=== PATIENT | female | born 1995 | race Caucasian/White ===

== ENCOUNTER 2016-10-16 19:35 | Emergency (ER) | payer OTHER ==
[~2016-10-16] VITALS: Ht 152.4 cm; Wt 69.4 kg
[~2016-10-16 19:35] MED LIST: ACETAMINOPHEN-1 EAC3 PO; CYTOTEC200 MC1 VAG; FLEXERIL10 MG PO; IBU600 MG PO; MINASTRIN 24 FE1 KIT PO; PERCOCET 325 MG1 TA2 PO; PRILOSEC OTC20 MG PO; PRILOSEC40 MG PO; REGLAN10 MG PO; TRAMADOL50 MG PO; ZOFRAN ODT4 M1 SL; ZOFRAN ODT4 MG PO; ZOFRAN ODT4 MG SL
--- NOTE | 2016-10-16 20:45 | ED DYSPNEA/ASTHMA COMPLAINT ---
History of Present Illness General Chief Complaint: Dyspnea (COPD, CHF, Other) Stated Complaint: TROUBLE BREATHING 34 WEEKS PREG Source: patient Exam Limitations: no limitations Vital Signs & Intake/Output Vital Signs & Intake/Output Vital Signs Date Time Temp Pulse Resp B/P Pulse O2 O2 Flow FiO2 Ox Delivery Rate 10/16 2221 98.7 80 18 110/64 99 10/163 100 Room Air 10/16 2018 97.8 102 16 127/82 100 Room Air Allergies Coded Allergies: gluten (ABD CRAMPS BUT STILL EATS BREAD 01/15/16) Uncoded Allergies: CATS AND DOGS (NASAL CONGESTION, ITCHY WATERY EYES 01/15/16) SEASONAL (ITCHY WATERY EYES, NASAL CONGESTION 01/15/16) Reconcile Medications Vit No.130/Iron/FA ( Tablet) 27 MG IRON-800 MCG TABLET 1 TAB PO DAILY SUPPLEMENT (Reported) Triage Note: PT TO ED C/O ONE EPISODE OF SOB THAT BEGAN WHILE SHE WAS WATCHING TV, BREATHING HAS SINCE IMPROVED. DENIES FEVER, DIZZINESS, N/V. STATING "I FEEL LIKE THE BABY IS PUSHING UP MY DIAPHGRAM" Triage Nurses Notes Reviewed? yes Onset: Gradual Duration: minute(s): (20) Timing: no prior history Severity: moderate Activities at Onset: none Prior Episodes/Possible Cause: no prior episodes Modifying Factors: Improves With: immobilization. : Yes Patient currently breastfeeds: No HPI: Patient is a 20-year-old female who is currently 34 weeks presenting to the emergency department with chief complaint of shortness of breath and trouble getting a deep breath then and palpitations that started gradually approximately one hour prior to arrival. She reports symptoms lasted approximately 20 minutes and have subsided since then. Denies abdominal pain. Denies any urinary frequency urgency or dysuria. No hemoptysis. Denies any leg swelling. No history of blood clots. Her RESOLUTION SPECIALIST is Dr. Basurto. She reports that she's been eating and drinking without difficulties. No vaginal bleeding or discharge. (LANE BRIGGS) Past History Travel History Traveled to [place] past 21 day No Medical History Any Pertinent Medical History? see below for history Neurological: NONE EENT: allergies Cardiovascular: NONE Respiratory: NONE Gastrointestinal: NONE Hepatic: NONE Renal: "GALLBLADDER ISSUES" Musculoskeletal: NONE Psychiatric: depression, insomnia Endocrine: NONE Blood Disorders: NONE Cancer(s): NONE PLASTIC FABRICATOR/Reproductive: NONE Surgical History Surgical History: TONSILS WISDOM TEETH Psychosocial History What is your primary language Malaysian Tobacco Use: Never used ETOH Use: denies use Illicit Drug Use: denies illicit drug use Family History Family History, If Any: Relation not specified for: FH: gallbladder disease Hx Contributory? No (LANE BRIGGS) Review of Systems Review of Systems Constitutional: Reports: no symptoms. Comments Review of systems: See HPI, All other systems negative. Constitutional, no chills fever or weight loss HEENT: No visual changes no sore throat no congestion Cardiovascular: No chest pain ,palpitation , orthopnea or ankle swelling Skin, no jaundice no rashes Respiratory: No cough sputum or hemoptysis GI: No nausea no vomiting : No dysuria No hematuria Muscle skeletal: no back pain, no neck pain, Neurologic: No numbness no confusion no polk Psych: No stress anxiety or depression,. Heme/endocrine: No bruising no bleeding no polyuria or polydipsia Immunology: No splenectomy or history of AIDS (LANE BRIGGS) Physical Exam Physical Exam General Appearance: well developed/nourished, no apparent distress, alert, awake , comfortable Respiratory: normal breath sounds, chest non-tender, no respiratory distress Comments: Well-developed well-nourished person in no acute distress HEENT: Normal EENT exam, extraocular motion intact, no nystagmus. Pupils equally round and reactive to light and accommodation. Nose is atraumatic. External auditory canal and Tympanic membranes clear. Pharynx normal. No swelling or edema. Neck: Supple, no lymphadenopathy, normal range of motion without pain or tenderness Back: Nontender, no CVA tenderness. Full range of motion Cardiovascular: Regular rate and rhythms no murmurs rubs or gallops, normal JVP Respiratory: Chest nontender. No respiratory distress.breath sounds clear to auscultation bilaterally Abdomen: Soft, abdomen, nontender, no appreciable organomegaly. Normal bowel sounds. No ascites Extremity: No edema, no calf tenderness to palpation, normal and equal pulses. Neuro: Alert oriented x3 Skin: No appreciable rash on exposed skin, skin is warm and dry. Psych: Mood and affect is normal, memory and judgment is normal. Core Measures ACS in differential dx? No Severe Sepsis Present: No Septic Shock Present: No (LANE BRIGGS) Progress Differential Diagnosis: pulmonary embolus, asthma exacerbation, anxiety, dehydration, electrolyte abnormality Plan of Care: Orders Procedure Date/time Status D-DIMER 10/16 2134 Complete EKG 10/16 2040 Active URINALYSIS 10/16 2039 Complete PROTHROMBIN TIME 10/16 2039 Complete HUMAN BETA HCG TITRE 10/16 2039 Complete COMPREHENSIVE METABOLIC PANEL 10/16 2039 Complete CBC WITHOUT DIFFERENTIAL 10/16 2039 Complete Current Medications Sig/Tia Start time Last Medication Dose Stop Time Status Admin Albuterol Sulfate 3 ML ONCE ONE 10/16 2229 CAN (Proventil) 10/16 2230 Laboratory Tests 10/16/162139: Urine Color YEL, Urine Clarity CLEAR, Urine pH 7.0, Ur Specific [place] 1.020, Urine Protein TRACE H, Urine Ketones TRACE H, Urine Nitrite NEG, Urine Bilirubin NEG, Urine Urobilinogen 0.2, Ur Leukocyte Esterase NEG, Ur Microscopic SEDIMENT EXAMINED, Urine RBC RARE, Urine WBC RARE, Ur Epithelial Cells MANY H, Urine Mucus FEW, Urine Hemoglobin NEG, Urine Glucose NEG 10/16/162134: Anion Gap 7, Estimated GFR > 60, BUN/Creatinine Ratio 16.0, Glucose 80, Calcium 8.3 L, Total Bilirubin 0.3, AST 17, ALT 19, Alkaline Phosphatase 112, Total Protein 6.5, Albumin 3.3 L, Globulin 3.2, Albumin/Globulin Ratio 1.0 L, Beta HCG, Quant 8388.7, PT 10.4, INR 0.99, D-Dimer 246 H, CBC w Diff NO MAN DIFF REQ , RBC 3.98 L, MCV 93.0, MCH 31.5 H, RDW 12.7, MPV 8.5, Gran % 71.9, Lymphocytes % 16.4 L, Monocytes % 9.9 H, Eosinophils % 1.2, Basophils % 0.6, Absolute Granulocytes 8.7 H, Absolute Lymphocytes 2.0, Absolute Monocytes 1.2 H, Absolute Eosinophils 0.1, Absolute Basophils 0.1, PUBS MCHC 33.9 10/16/162044: D-Dimer Cancelled Initial ED EKG: sinus tachycardia at 170 bpm Prior EKG: unchanged Comments: 10/16/2016 10:32:47 PM on arrival patient noted distress, oxygen saturation within normal range, patient is slightly tachycardic. She is . No unilateral leg swelling. Cannot exclude pulmonary embolus, d-dimer ordered. Patient receiving IV fluids. 10/16/2016 10:33:08 PM patient not tachypneic or tachycardic at this time, Poles is currently 83 bpm on the monitor. Normal sinus rhythm. D-dimer is 246, negative according to cut off of 304 patients were greater than 28 weeks . Childbirth center coming over to check tones and the patient will be discharged home with albuterol inhaler. She'll follow up with RESOLUTION SPECIALIST. Discussed with Dr. Boateng and he agrees with plan. tones are in the 140s. (LANE BRIGGS) Departure Departure Time of Disposition: 2232 Disposition: HOME OR SELF CARE Condition: Stable Clinical Impression Primary Impression: Dyspnea Qualifiers: Dyspnea type: unspecified Qualified Code: R06.00 - Dyspnea, unspecified Secondary Impressions: Palpitation Referrals: PATIENT HAS NO PRIMARY CARE DR (PCP/Family) Additional Instructions: Follow-up with your RESOLUTION SPECIALIST call to make an appointment. Increase fluids. Use albuterol inhaler as directed for shortness of breath. Return for worsening symptoms or concerns. Departure Forms: Customer Survey General Discharge Information (LANE BRIGGS) PA/CLINICAL DATA MANAGER Co-Sign Statement Statement: ED Attending supervision documentation- [] I saw and evaluated the patient. I have also reviewed all the pertinent lab results and diagnostic results. I agree with the findings and the plan of care as documented in the PA's/CLINICAL DATA MANAGER's documentation. [x] I have reviewed the ED Record and agree with the PA's/CLINICAL DATA MANAGER's documentation. [] Additions or exceptions (if any) to the PAs/CLINICAL DATA MANAGER's note and plan are summarized below: [] (PAT GREEN,SHY Quezada) Critical Care Note Critical Care Note Critical Care Time: non-applicable (LANE BRIGGS)
[2016-10-16] MEDS ORDERED: PRENATAL TABLE1 EAC2 PO (20:48)
[2016-10-16 21:55] LABS: ABSOLUTE BASOPHIL COUNT 0.1 /CUMM (0.0-0.2); ABSOLUTE EOSINOPHIL COUNT 0.1 /CUMM (0.0-0.7); ABSOLUTE GRANULOCYTE CT 8.7 /CUMM (1.4-6.5); ABSOLUTE MONOCYTE COUNT 1.2 /CUMM (0.10-0.60); BASOPHIL % 0.6 % (0.0-2.0); EOSINOPHIL % 1.2 % (0-5); GRANULOCYTE % 71.9 % (42.2-75.2); MEAN CORPUSCULAR HGB 31.5 PG (27.0-31.0); MEAN CORPUSCULAR HGB CONC 33.9 G/DL (33.0-37.0); MEAN PLATELET VOLUME 8.5 FL (7.4-10.4); PLATELET COUNT 247 /CUMM (130-400); RBC DISTRIBUTION WIDTH 12.7 % (11.5-14.5); RED BLOOD CELL CT 3.98 /CUMM (4.20-5.40); WHITE BLOOD CELL COUNT 12.1 /CUMM (4.8-10.8)
[2016-10-16 22:05] LABS: PT 10.4 SEC (9.4-12.5)
[2016-10-16 22:22] VITALS: BP 110/64
== END 2016-10-16 22:55 ==
LOC: ERH 19:35
PROVIDERS: Physician Assistant
DX: O26.93 Pregnancy related conditions, unspecified, third trimester (principal); R00.2 Palpitations; R06.00 Dyspnea, unspecified; Z3A.36 36 weeks gestation of pregnancy
CPT/HCPCS: 81001; 93005; 93010; 96360; 96361

== ENCOUNTER 2016-11-21 22:32 | Inpatient (IN) | payer OTHER ==
[~2016-11-21] VITALS: Ht 152.4 cm; Wt 77.1 kg
[~2016-11-21 22:32] MED LIST changes: +PRENATAL TABLE1 EAC2 PO
[2016-11-21 23:31] VITALS: BP 129/87
[2016-11-22 00:22] LABS: ABSOLUTE BASOPHIL COUNT 0 /CUMM (0.0-0.2); ABSOLUTE EOSINOPHIL COUNT 0.3 /CUMM (0.0-0.7); ABSOLUTE GRANULOCYTE CT 7.5 /CUMM (1.4-6.5); ABSOLUTE LYMPH COUNT 1.8 /CUMM (1.2-3.4); ABSOLUTE MONOCYTE COUNT 1.4 /CUMM (0.10-0.60); BASOPHIL % 0.4 % (0.0-2.0); EOSINOPHIL % 2.3 % (0-5); GRANULOCYTE % 67.8 % (42.2-75.2); HEMATOCRIT 36.8 % (37-47); MEAN CORPUSCULAR HGB 31.6 PG (27.0-31.0); MEAN CORPUSCULAR HGB CONC 34.3 G/DL (33.0-37.0); MEAN CORPUSCULAR VOLUME 92.1 FL (81.0-99.0); PLATELET COUNT 220 /CUMM (130-400)
--- NOTE | 2016-11-22 12:59 | History & Physical ---
General Information and HPI MD Statement: I have seen and personally examined CHESTER HESTER and documented this H&P. The patient is a 21 year old female at [39] weeks and [3] days gestation who presented with a chief complaint of [PROM]. Source of Information: police History of Present Illness: [id number] WITH PROM AND NOW ACTIVE LABOR. ROUTINE CARE WITH DR FIERRO. EXPECTANT MANAGEMENT. Allergies/Medications Allergies: Coded Allergies: No Known Drug Allergies (11/21/16) Uncoded Allergies: CATS AND DOGS (Mild, NASAL CONGESTION, ITCHY WATERY EYES 11/21/16) SEASONAL (Mild, ITCHY WATERY EYES, NASAL CONGESTION 11/21/16) Home Med list Vit No.130/Iron/FA ( Tablet) 27 MG IRON-800 MCG TABLET 1 TAB PO DAILY SUPPLEMENT (Reported) Past History special crimes investigator History : 2 Para: 0 Last Menstrual Period: NA Estimated Delivery Date: 11/26/16 Past special crimes investigator History: none Medical History Neurological: NONE EENT: allergies Cardiovascular: NONE Respiratory: NONE Gastrointestinal: NONE Hepatic: NONE Renal: "GALLBLADDER ISSUES" Musculoskeletal: NONE Psychiatric: depression, insomnia Endocrine: NONE Blood Disorders: NONE Cancer(s): NONE 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 EENTM: Reports: no symptoms. Cardiovascular: Reports: no symptoms. Respiratory: Reports: no symptoms. GI: Reports: no symptoms. Genitourinary: Reports: no symptoms. Musculoskeletal: Reports: no symptoms. Skin: Reports: no symptoms. Neurological/Psychological: Reports: no symptoms. Hematologic/Endocrine: Reports: no symptoms. Immunologic/Allergic: Reports: no symptoms. All Other Systems: Reviewed and Negative Exam & Diagnostic Data Last 24 Hrs of Vital Signs/I&O Vital Signs Date Time Temp Pulse Resp B/P Pulse O2 O2 Flow FiO2 Ox Delivery Rate 11/21 2331 129/87 Intake & Output 11/22 1600 11/22 0800 11/22 0000 Intake Total Output Total Balance Patient 170 lb Weight Obstetric Exam Wgt Gained During : 35 Pelvimetry: GYNECOID Dilation (cm): 6 Effacement (%): 100 Station: 0 Membranes: SROM Fluid: clear Fundal Height (cm): 40 Multiple Gestation? No Contractions: Q3 #1 - FHR Baseline: 140 Category: 1 Estimated Weight: 7.5 Presentation: CEPHALIC Patient for Induction? No Labs Blood Type & Rh: B POS Antibody Screen: NEG Hct/Hgb & Platelets #1: 36 Hct/Hgb & Platelets #2: Rubella: IMM VDRL #1: NR VDRL #2: NR HbsAg: NEG HIV #1: NEG HIV #2 NEG 1 Hr P Group B Strep: NEG Initial Ultrasound: WNL Anatomy Ultrasound: WNNN Ultrasound for EFW: 6.5 Genetic Testing: NEG Last 24 Hrs of Labs/Jimi: Laboratory Tests 11/21/16 2353: CBC w Diff NO MAN DIFF REQ, RBC 4.00 L, MCV 92.1, MCH 31.6 H, RDW 13.0, MPV 10.0, Gran % 67.8, Lymphocytes % 16.6 L, Monocytes % 12.9 H, Eosinophils % 2.3 , Basophils % 0.4, Absolute Granulocytes 7.5 H, Absolute Lymphocytes 1.8, Absolute Monocytes 1.4 H, Absolute Eosinophils 0.3, Absolute Basophils 0, PUBS MCHC 34.3 11/21/16 2345: Urinalysis MOD H, Urine Color YEL, Urine Clarity CLDY H, Urine pH 7.0, Ur Specific [place] 1.020, Urine Protein 100 H, Urine Ketones NEG, Urine Nitrite NEG, Urine Bilirubin NEG, Urine Urobilinogen 0.2, Ur Leukocyte Esterase NEG, Ur Microscopic SEDIMENT EXAMINED, Urine RBC 1-3, Urine WBC 1-3 H, Ur Epithelial Cells PACKD H, Urine Hemoglobin TRACE-INTACT, Urine Glucose NEG Microbiology 11/22 0915 URINE ROUT: Urine Culture - RECD ITS Data ITS Data Unobtainable at this time Assessment/Plan Assessment/Plan: PROM 39W EXPECTANT MGMT As Ranked By This Provider Problem List: 1. Core Measures/Miscellaneous Bonilla Catheter Still Needed? No Venous Thromboembolism VTE Risk Factors: / VTE Contraindications: No Contraindications VTE Prophylaxis Ordered Inpt: Early Ambulation VTE Diagnosis: No VTE Type: NONE Beta Kat Is Beta Kat a Home Med? No Antibiotics Is Patient on Antibiotics? No
--- NOTE | 2016-11-22 13:24 | Labor & Delivery Summary ---
Delivery Summary Vaginal Delivery: Vaginal: vertex Episiotomy/Lacerations: Episiotomy/Lacerations: none Placenta: Placenta: spontanteous, normal, 3 vessel Anesthesia: EPIDURAL Baby's Weight: P STS Apgars - 1 Min: 9 Apgars - 5 Min: 9
--- NOTE | 2016-11-23 08:44 | PN- Post Delivery/GYN ---
Subjective Subjective: DOING WELL; BREAST FEEDING Review of Systems: NEG Objective Last 24 Hrs of Vital Signs/I&O VSS Physical Exam: FF EXT NT Assessment/Plan Assessment/Plan S/P PPD1 STABLE CBC P ROUTINE PPC Problem List: 1.
[2016-11-23 09:12] LABS: ABSOLUTE BASOPHIL COUNT 0 /CUMM (0.0-0.2); ABSOLUTE EOSINOPHIL COUNT 0.2 /CUMM (0.0-0.7); ABSOLUTE GRANULOCYTE CT 10.1 /CUMM (1.4-6.5); ABSOLUTE LYMPH COUNT 2.1 /CUMM (1.2-3.4); ABSOLUTE MONOCYTE COUNT 1.1 /CUMM (0.10-0.60); BASOPHIL % 0.3 % (0.0-2.0); EOSINOPHIL % 1.4 % (0-5); GRANULOCYTE % 75.1 % (42.2-75.2); MEAN CORPUSCULAR HGB 31.5 PG (27.0-31.0); MEAN CORPUSCULAR HGB CONC 33.6 G/DL (33.0-37.0); MEAN CORPUSCULAR VOLUME 93.8 FL (81.0-99.0); MEAN PLATELET VOLUME 9.6 FL (7.4-10.4); PLATELET COUNT 184 /CUMM (130-400); RBC DISTRIBUTION WIDTH 13.5 % (11.5-14.5); RED BLOOD CELL CT 3.84 /CUMM (4.20-5.40); WHITE BLOOD CELL COUNT 13.4 /CUMM (4.8-10.8)
[2016-11-23] MEDS ORDERED: IBUPROFEN800 M1 PO (15:21)
== END 2016-11-24 09:23 | DRG 560 ==
LOC: CBCO 22:32 → GNO 23:09
PROVIDERS: Obstetrics & Gynecology; ADMIT Specialist
PROC: 10E0XZZ Delivery of Products of Conception, External Approach (ICD-10-PCS; principal; 2016-11-22)
DX: O42.02 Full-term premature rupture of membranes, onset of labor within 24 hours of rupture (principal); Z3A.39 39 weeks gestation of pregnancy; Z37.0 Single live birth
CPT/HCPCS: GNOP; GNOS; 36415; 59025; 81001; 81003; 82570; 84112; 87086; G0463; J7120

== ENCOUNTER 2017-03-24 12:01 | Emergency (ER) | payer OTHER ==
[~2017-03-24] VITALS: Ht 154.9 cm; Wt 68.5 kg
[~2017-03-24 12:01] MED LIST changes: +IBUPROFEN800 M1 PO
--- NOTE | 2017-03-24 12:19 | ED NEURO DEFICIT/STROKE ---
History of Present Illness General Chief Complaint: General Adult Stated Complaint: LEG AND ARM HEAVINESS, X 8 HRS Source: patient, old records Exam Limitations: no limitations Vital Signs & Intake/Output Vital Signs & Intake/Output Vital Signs Date Time Temp Pulse Resp B/P B/P Pulse O2 O2 Flow FiO2 Mean Ox Delivery Rate 03/24 1444 98.5 100 20 120/80 99 Room Air 03/24 1244 Room Air 03/24 1205 98.3 105 20 124/87 99 Room Air Allergies Coded Allergies: No Known Drug Allergies (11/21/16) Uncoded Allergies: CATS AND DOGS (Mild, NASAL CONGESTION, ITCHY WATERY EYES 11/21/16) SEASONAL (Mild, ITCHY WATERY EYES, NASAL CONGESTION 11/21/16) Reconcile Medications Ethinyl Estradiol/Drospirenone (Teri 28 Tablet) 0.03 MG-3 MG TABLET 1 TAB PO DAILY BC (Reported) Methylprednisolone. (Medrol) 4 MG TAB.DS.PK 1 DP PO AD LUMBAR RADICULOPATHY 6 on day 1 then reduce by one tablet daily until gone Triage Note: PT TO ED C/O LOWER BACK PAIN AND "LEGS FEELING HEAVY". STARTED AT 0400 THIS AM. STATES SHE IS ALSO UNABLE TO LIFT HER ARMS OVER HER HEAD. DENIES ANY INJURY. STATES SHE IS HAVING A HARD TIME HOLDING THINGS, LIKE HER CELL PHONE, WHEN TEXTING. ALSO STATES AT TIMES SHE IS HAVING A HARD TIME FINDING WORDS. Triage Nurses Notes Reviewed? yes Onset: Gradual Duration: hour(s): (8), constant Timing: recent history Severity: mild, moderate Altered Sensations: RLE, LLE Vision Problem? No Associated Symptoms: DENIES : No Patient currently breastfeeds: No HPI: 21-year-old female presents to ER for evaluation complaining sudden onset lower back pain associated with heaviness and bilateral leg since 4:00 this morning which went to go pick up worker her boyfriend. She denies any known injury trauma. She is not taken anything for symptoms. She states that her picking him up from work she went to sleep and they went to bedAnd beyond and she began to feel heaviness in her arms. The patient states she's had difficulty lifting them above her head. No headache no vision changes neck or upper back pain no chest pain shortness of breath. She is not taken anything for symptoms no change in mental status per family. No history of similar episodes in the past. No urinary or bowel incontinence. She states she's had intermittent back pain since October when she had an epidural when giving to her daughter. No fever no chills. (KYA LEE) Past History Travel History Traveled to [place] past 21 day No Medical History Any Pertinent Medical History? 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 No (KYA LEE) Review of Systems Review of Systems Constitutional: Reports: see HPI. All Other Systems: Reviewed and Negative Comments Review of systems: See HPI, All other systems negative. Constitutional, no chills no fever, no malaise no weight loss HEENT: no sore throat no congestion, no ear pain Cardiovascular: No chest pain , no palpitation , no orthopnea Skin: no rashes, no change in skin Respiratory: No dyspnea no cough no sputum GI: No nausea no vomiting, no diarrhea, no bloating/constipation : No dysuria No hematuria, no frequency Muscle skeletal: No joint pain, no joint swelling, back pain, no neck pain, Neurologic: No numbness no confusion, no headache Psych: No stress no depression,. Heme/endocrine: No bruising no bleeding Immunology: No lymphadenopathy (KYA LEE) Physical Exam Physical Exam General Appearance: well developed/nourished, alert, awake Cranial Nerves: normal hearing, normal speech, PERRL Comments: Well-developed well-nourished person in no acute distress HEENT: Normal EENT exam; PERRL, EOMI, no nystagmus. HEAD is atraumatic. moist mucous membranes. Neck: Supple, no lymphadenopathy, normal range of motion without pain or tenderness Back: Nontender, no CVA tenderness. Full range of motion Cardiovascular: Regular rate and rhythms no murmurs rubs or gallops, normal JVP Respiratory: Chest nontender.There were no bony deformities, no asymmetry. No respiratory distress. Patient speaking in full complete sentences. Breath sounds clear to auscultation bilaterally: NO W/R/R Abdomen: Soft, nontender nondistended, no appreciable organomegaly. Normal bowel sounds. No rebound/guarding, Extremity: No edema, full range of motion of extremities, normal and equal pulses bilaterally, 5 out of 5 strength noted to bilateral upper and lower extremities negative straight leg raise bilaterally Neuro: Alert oriented x3, motor sensory normal, cranial nerves II through XII grossly intact. There were no obvious focal neurologic abnormalities. Skin: No appreciable rash on exposed skin, skin is warm and dry. Psych: Mood and affect is normal, memory and judgment is normal. Core Measures CVA/TIA Diagnosis: No Severe Sepsis Present: No Septic Shock Present: No (DERRICK VALENCIA,KYA) Progress Differential Diagnosis: electrolyte imbalance, encephalitis, meningitis, MS, EPIDRUAL ABSCESS, RADICULPATHY Plan of Care: Orders Procedure Date/time Status HUMAN BETA HCG SCREEN 03/24 1226 Complete COMPREHENSIVE METABOLIC PANEL 03/24 1226 Complete CBC WITHOUT DIFFERENTIAL 03/24 1226 Complete Laboratory Tests 03/24/17 1241: Anion Gap 15, Estimated GFR > 60, BUN/Creatinine Ratio 17.1, Glucose 93, Calcium 9.8, Total Bilirubin 0.4, AST 44 H, ALT 96 H, Alkaline Phosphatase 99, Total Protein 8.0, Albumin 4.9, Globulin 3.1, Albumin/Globulin Ratio 1.6, Total Beta HCG NEGATIVE, CBC w Diff NO MAN DIFF REQ, RBC 4.88, MCV 89.7, MCH 29.9, RDW 12.9 , MPV 9.8, Gran % 61.7, Lymphocytes % 25.1, Monocytes % 8.4, Eosinophils % 3.1, Basophils % 1.7, Absolute Granulocytes 5.0, Absolute Lymphocytes 2.0, Absolute Monocytes 0.7 H, Absolute Eosinophils 0.3, Absolute Basophils 0.1, PUBS MCHC 33.4 Labs ordered old records. Patient declining for pain when offered CAT scan ordered case discussed with Dr. LAYTON Repeat evaluation Tylenol ordered patient is noted to be lifting her arms above her head with her hair resting in no apparent distress I discussed with the patient at length all of their results. I had an extensive conversation regarding need for close follow up with their primary care physician this week as well as return precautions. I answered all of their questions, they feel comfortable with the plan and follow-up care. I discussed with the patient/family the medications that they will receive. I gave them signs and symptoms that could indicate an adverse reaction. I have advised them to limit their activities until they can see how they respond to the medication. (DERRICK VALENCIA,KYA) Diagnostic Imaging: Viewed by Me: CT Scan. Discussed w/RAD: CT Scan. Radiology Impression: PATIENT: CHESTER HESTER PRESENT AGE: 21 PATIENT ACCOUNT NO: [id number] : 93 LOCATION: [facility] ORDERING PHYSICIAN: KYA VALENCIA SERVICE DATE: 03/24/17 EXAM TYPE: CAT - CT LUMB SPINE W IV CONTRAST EXAMINATION: CT LUMBAR SPINE WITH CONTRAST CLINICAL INFORMATION: 21-year-old female with low back pain radiating into legs. History of epidural in October 2016. Evaluate for epidural abscess. COMPARISON: None TECHNIQUE: Multidetector CT imaging evaluation of the lumbar spine was performed using 0.625 mm collimation and intravenous administration of 95 mL of Optiray 320 intravenous contrast. In addition to the standard set of axial images, coronal and sagittal reformatted images were generated and reviewed. DLP : 362 mGy-cm FINDINGS: There is normal segmentation and normal curvature of the lumbar spine. The anterior and posterior elements are intact. The lumbar vertebra have normal height and alignment. No evidence of spondylolysis, spondylolisthesis or vertebral compression fracture. No evidence of epidural hematoma, abscess or paraspinal fluid collection. Abdominal aorta is normal and there is no para-aortic lymphadenopathy. SPINAL LEVELS: T12-L1: Normal. L1-L2: Normal. L2-L3: Normal. L3-L4: Normal. L4-L5: There appears to be a central disc herniation with slight midline, caudal extension producing indentation of on the ventral surface of the thecal sac. However, there is no significant narrowing of the central spinal canal and the neural foramina are widely patent. L5-S1: There is a small central to right paracentral disc herniation and the disc appears to contact the transiting right S1 nerve root. The right and left neural foramina are widely patent. Sacrum: The sacral ala, foramina and sacroiliac joints are unremarkable. IMPRESSION: 1. No evidence of lumbar epidural abscess. 2. L4-L5 central disc herniation produces mild indentation upon the ventral surface of the thecal sac. 3. L5-S1 small central to right paracentral disc herniation appears to contact the transiting right S1 nerve root. DICTATED BY: VANCE HILTON MD DATE/TIME DICTATED:03/24/171402 EARTH AUGER OPERATOR:ANNIKA DATE/TIME TRANSCRIBED:03/24/171402 CONFIDENTIAL, DO NOT COPY WITHOUT APPROPRIATE AUTHORIZATION. <Electronically signed in Other Vendor System> SIGNED BY: VANCE HILTON MD 03/24/17 1417 Initial ED EKG: none (KYA LEE) Departure Departure Time of Disposition: 1422 Disposition: HOME OR SELF CARE Condition: Stable Clinical Impression Primary Impression: Herniated disc Referrals: PATIENT HAS NO PRIMARY CARE DR (PCP/Family) Additional Instructions: Follow-up with primary care physician as discussed. Medrol Dosepak as directed in her change ice and heat to her back. Return to ER anytime sooner with any concerns. Departure Forms: Customer Survey General Discharge Information Prescriptions: Current Visit Scripts Methylprednisolone. (Medrol) 1 DP PO AD #1 DP 6 on day 1 then reduce by one tablet daily until gone (KYA LEE) PA/PLATE MOLDER Co-Sign Statement Statement: ED Attending supervision documentation- I saw and evaluated the patient. I have also reviewed all the pertinent lab results and diagnostic results. I agree with the findings and the plan of care as documented in the PA's/PLATE MOLDER's documentation. x I have reviewed the ED Record and agree with the PA's/PLATE MOLDER's documentation. [] Additions or exceptions (if any) to the PAs/PLATE MOLDER's note and plan are summarized below: [] (CALIN GREEN,JOHN)
[2017-03-24] MEDS ORDERED: YASMIN 28 TABL1 EACH PO (12:45)
[2017-03-24 12:55] LABS: ABSOLUTE BASOPHIL COUNT 0.1 /CUMM (0.0-0.2); ABSOLUTE EOSINOPHIL COUNT 0.3 /CUMM (0.0-0.7); ABSOLUTE MONOCYTE COUNT 0.7 /CUMM (0.10-0.60); BASOPHIL % 1.7 % (0.0-2.0); EOSINOPHIL % 3.1 % (0-5); GRANULOCYTE % 61.7 % (42.2-75.2); HEMATOCRIT 43.8 % (37-47); MEAN CORPUSCULAR HGB 29.9 PG (27.0-31.0); MEAN CORPUSCULAR HGB CONC 33.4 G/DL (33.0-37.0); MEAN CORPUSCULAR VOLUME 89.7 FL (81.0-99.0); MEAN PLATELET VOLUME 9.8 FL (7.4-10.4); PLATELET COUNT 277 /CUMM (130-400); RBC DISTRIBUTION WIDTH 12.9 % (11.5-14.5); RED BLOOD CELL CT 4.88 /CUMM (4.20-5.40); WHITE BLOOD CELL COUNT 8.1 /CUMM (4.8-10.8)
--- NOTE | 2017-03-24 14:17 | CT SCAN REPORT ---
EXAMINATION: CT LUMBAR SPINE WITH CONTRAST CLINICAL INFORMATION: 21-year-old female with low back pain radiating into legs. History of epidural in October 2016. Evaluate for epidural abscess. COMPARISON: None TECHNIQUE: Multidetector CT imaging evaluation of the lumbar spine was performed using 0.625 mm collimation and intravenous administration of 95 mL of Optiray 320 intravenous contrast. In addition to the standard set of axial images, coronal and sagittal reformatted images were generated and reviewed. DLP: 362 mGy-cm FINDINGS: There is normal segmentation and normal curvature of the lumbar spine. The anterior and posterior elements are intact. The lumbar vertebra have normal height and alignment. No evidence of spondylolysis, spondylolisthesis or vertebral compression fracture. No evidence of epidural hematoma, abscess or paraspinal fluid collection. Abdominal aorta is normal and there is no para-aortic lymphadenopathy. SPINAL LEVELS: T12-L1: Normal. L1-L2: Normal. L2-L3: Normal. L3-L4: Normal. L4-L5: There appears to be a central disc herniation with slight midline, caudal extension producing indentation of on the ventral surface of the thecal sac. However, there is no significant narrowing of the central spinal canal and the neural foramina are widely patent. L5-S1: There is a small central to right paracentral disc herniation and the disc appears to contact the transiting right S1 nerve root. The right and left neural foramina are widely patent. Sacrum: The sacral ala, foramina and sacroiliac joints are unremarkable. IMPRESSION: 1. No evidence of lumbar epidural abscess. 2. L4-L5 central disc herniation produces mild indentation upon the ventral surface of the thecal sac. 3. L5-S1 small central to right paracentral disc herniation appears to contact the transiting right S1 nerve root.
[2017-03-24] MEDS ORDERED: MEDROL4 M2 PO (14:24)
[2017-03-24 14:44] VITALS: BP 120/80
== END 2017-03-24 14:45 ==
LOC: ERH 12:01
PROVIDERS: Physician Assistant Medical
DX: M51.26 Other intervertebral disc displacement, lumbar region (principal)

== ENCOUNTER 2018-01-17 17:28 | Emergency (ER) | payer OTHER ==
[~2018-01-17] VITALS: Ht 152.4 cm; Wt 78.9 kg
[~2018-01-17 17:28] MED LIST changes: +MEDROL4 M2 PO; +YASMIN 28 TABL1 EACH PO
--- NOTE | 2018-01-17 18:40 | ED SKIN/ALLERGY COMPLAINT ---
History of Present Illness General Chief Complaint: General Adult Stated Complaint: SWEATING, SHAKING , PAIN ALL OVER BODY Source: patient Exam Limitations: no limitations Vital Signs & Intake/Output Vital Signs & Intake/Output Vital Signs Date Time Temp Pulse Resp B/P B/P Pulse O2 O2 Flow FiO2 Mean Ox Delivery Rate 01/17 2102 99.8 120 18 100 01/17 1839 99.6 120 18 121/84 96 Room Air Allergies Coded Allergies: No Known Drug Allergies (11/21/16) Uncoded Allergies: CATS AND DOGS (Mild, NASAL CONGESTION, ITCHY WATERY EYES 11/21/16) SEASONAL (Mild, ITCHY WATERY EYES, NASAL CONGESTION 11/21/16) Reconcile Medications Ethinyl Estradiol/Drospirenone (Teri 28 Tablet) 0.03 MG-3 MG TABLET 1 TAB PO DAILY BC (Reported) Methylprednisolone. (Medrol) 4 MG TAB.DS.PK 1 DP PO AD LUMBAR RADICULOPATHY 6 on day 1 then reduce by one tablet daily until gone Triage Note: PT STATES SHE WAS DIOGNOSED WITH MASTITIS RIGHT BREAST. PT STATES ITS NOT GETTING BETTER AND HER RIGHT BREAST IS VERY RED AND SWOLLEN. PT STATES SHE IS STILL PUMPING HER RIGHT BREAST. PT IS TAKING MEDS THAT THE WALK IN PRESCRIBED HER YESTERDAY. PT STATES IT IS PAINFUL WHEN SHE PUMPS. PT HAS BEEN DOING HOT SHOWERS AND WARM CLOTHS TO AREA WITH NO RELIEF Triage Nurses Notes Reviewed? yes Onset: Gradual Duration: day(s): Timing: recent history Severity: moderate Location: right breast : No Patient currently breastfeeds: Yes HPI: 22yo female one week post presents to ED complaining of worsening mastitis. Patient was seen in urgent care and diagnosed with mastitis of right breast yesterday. She was started on dicloxacillin. Patient has been taking this antibiotic as prescribed however reports seeing redness to her right breast. Patient also reports fevers and chills, body aches, malaise. Patient has also been taking warm showers and applying hot compresses to area. Patient has been pumping milk is normal. Patient denies abdominal pain, vomiting, diarrhea. (Cortney VALENCIA,Brea Akhtar) Past History Travel History Traveled to [place] past 21 day No Medical History Any Pertinent Medical History? 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 No (Brea Singh) Review of Systems Review of Systems Constitutional: Reports: see HPI. EENTM: Reports: no symptoms. Respiratory: Reports: no symptoms. Cardiovascular: Reports: no symptoms. GI: Reports: no symptoms. Genitourinary: Reports: no symptoms. Musculoskeletal: Reports: no symptoms. Skin: Reports: see HPI. Neurological/Psychological: Reports: no symptoms. Hematologic/Endocrine: Reports: no symptoms. Immunologic/Allergic: Reports: no symptoms. All Other Systems: Reviewed and Negative (Brea Singh) Physical Exam Physical Exam General Appearance: well developed/nourished, no apparent distress, alert, awake Head: atraumatic, normal appearance Eyes: Bilateral: normal appearance. Ears, Nose, Throat: hearing grossly normal Neck: normal inspection, supple, full range of motion Respiratory: normal breath sounds, no respiratory distress, lungs clear Cardiovascular: regular rate/rhythm Back: normal inspection, normal range of motion Extremities: normal inspection, normal range of motion Neurologic/Psych: awake, alert, oriented x 3 Skin: see breast exam below Comments: breast: Right breast with erythema laterally, tenderness (Brea Singh) Progress Differential Diagnosis: abscess/cellulitis, allergic reaction, urticaria, mastitis Plan of Care: Orders Procedure Date/time Status LACTIC ACID 01/17 1839 Complete COMPREHENSIVE METABOLIC PANEL 01/17 1839 Complete CBC WITHOUT DIFFERENTIAL 01/17 1839 Complete Current Medications Sig/Tia Start time Last Medication Dose Stop Time Status Admin Acetaminophen 650 MG ONCE ONE 01/17 2215 UNVr (Tylenol) 01/18 2216 Laboratory Tests 01/17/182138: Lactic Acid Cancelled 01/17/18 1844: Anion Gap 15, Estimated GFR 55 L, BUN/Creatinine Ratio 11.7, Glucose 109 H, Lactic Acid 1.1, Calcium 9.0, Total Bilirubin 0.6, AST 24, ALT 42, Alkaline Phosphatase 191 H, Total Protein 7.8, Albumin 4.1, Globulin 3.7, Albumin/ Globulin Ratio 1.1, CBC w Diff NO MAN DIFF REQ, RBC 4.54, MCV 82.2, MCH 26.2 L, MCHC 31.9 L, RDW 16.6 H, MPV 8.2, Gran % 90.5 H, Lymphocytes % 5.3 L, Monocytes % 2.5, Eosinophils % 1.7, Basophils % 0, Absolute Granulocytes 12.9 H , Absolute Lymphocytes 0.8 L, Absolute Monocytes 0.4, Absolute Eosinophils 0.2, Absolute Basophils 0 Microbiology 01/17 1945 NASOPHARYN: Influenza Virus A & B Rapid Smear - CAN Cancelled: Cancelled via OE: WRONG PT, PER PA Labs were obtained, patient has mild acute kidney injury, medicated with 1 L of normal saline. Patient also has mild leukocytosis. Patient has only been on antibiotics for 1 day. Patient instructed to continue dicloxacillin however she was given strict return precautions. Patient is in no acute distress, nontoxic appearing, vital signs are stable at this time. Patient to return if redness/ swelling/fevers worsen. Otherwise she will continue antibiotic as prescribed. Patient agrees with the plan of care. The patient was discussed with Dr. Boateng who agrees with this plan. (Cortney VALENCIA,Brae Akhtar) Departure Departure Disposition: HOME OR SELF CARE Condition: Stable Clinical Impression Primary Impression: Mastitis Referrals: Patient Has No Primary Care Dr (PCP/Family) Additional Instructions: Continue your antibiotics as prescribed. Also continue with warm compresses at least twice daily. You may try massaging the area to help with inflammation. Take ibuprofen and Tylenol as prescribed as needed for pain, fevers, body aches. 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 Please note that there might be incidental findings in your evaluation that are unrelated to the current emergency department visit. Please notify your primary care doctor about this emergency department visit in order to obtain and review all of the testing performed so that these incidental findings can be monitored as needed. If you had an x-ray performed, please understand that some fractures may not be seen on the initial set of x-rays. If your symptoms persist you might need a repeat set of x-rays to check for such a fracture. If you had a laceration evaluated, please understand that foreign bodies such as glass or wood may not be visible to the naked eye or on plain x-rays. If the wound becomes red, swollen, increasingly more painful or if there is any drainage from the wound, please have it reevaluated by a physician for the possibility of a retained foreign body. If you're unable to follow up as outlined in the discharge instructions please return to the emergency department. Thank you for choosing the [facility] Emergency Department for your care. It was a pleasure to serve you today. Departure Forms: Customer Survey General Discharge Information (Cortney VALENCIA,Brea Akhtar) PA/MEDICAL EDUCATOR Co-Sign Statement Statement: ED Attending supervision documentation- [] I saw and evaluated the patient. I have also reviewed all the pertinent lab results and diagnostic results. I agree with the findings and the plan of care as documented in the PA's/MEDICAL EDUCATOR's documentation. [x] I have reviewed the ED Record and agree with the PA's/MEDICAL EDUCATOR's documentation. [] Additions or exceptions (if any) to the PAs/MEDICAL EDUCATOR's note and plan are summarized below: [] (Kilo GREEN,Reid Quezada)
[2018-01-17 19:04] LABS: ABSOLUTE BASOPHIL COUNT 0 /CUMM (0.0-0.2); ABSOLUTE EOSINOPHIL COUNT 0.2 /CUMM (0.0-0.7); ABSOLUTE GRANULOCYTE CT 12.9 /CUMM (1.4-6.5); ABSOLUTE LYMPH COUNT 0.8 /CUMM (1.2-3.4); ABSOLUTE MONOCYTE COUNT 0.4 /CUMM (0.10-0.60); BASOPHIL % 0 % (0.0-2.0); EOSINOPHIL % 1.7 % (0-5); HEMATOCRIT 37.3 % (37-47); MEAN CORPUSCULAR HGB 26.2 PG (27.0-31.0); MEAN CORPUSCULAR HGB CONC 31.9 G/DL (33.0-37.0); MEAN CORPUSCULAR VOLUME 82.2 FL (81.0-99.0); MEAN PLATELET VOLUME 8.2 FL (7.4-10.4); PLATELET COUNT 336 /CUMM (130-400); RBC DISTRIBUTION WIDTH 16.6 % (11.5-14.5); RED BLOOD CELL CT 4.54 /CUMM (4.20-5.40); WHITE BLOOD CELL COUNT 14.2 /CUMM (4.8-10.8)
[2018-01-17 19:07] LABS: GRANULOCYTE % 90.5 % (42.2-75.2)
[2018-01-17 22:12] VITALS: BP 118/80
== END 2018-01-17 22:19 ==
LOC: ERH 17:28
PROVIDERS: Physician Assistant
DX: N61.0 Mastitis without abscess (principal)
CPT/HCPCS: 87804; 87804-59

== ENCOUNTER 2018-05-12 23:11 | Emergency (ER) | payer OTHER ==
[~2018-05-12] VITALS: Ht 152.4 cm; Wt 72.6 kg
[~2018-05-12 23:11] MED LIST changes: +TRAMADOL HCL50 M1 PO
[2018-05-13 02:42] LABS: ABSOLUTE BASOPHIL COUNT 0.1 /CUMM (0.0-0.2); ABSOLUTE EOSINOPHIL COUNT 0 /CUMM (0.0-0.7); ABSOLUTE LYMPH COUNT 1.4 /CUMM (1.2-3.4); ABSOLUTE MONOCYTE COUNT 0.6 /CUMM (0.10-0.60); BASOPHIL % 0.4 % (0.0-2.0); EOSINOPHIL % 0.3 % (0-5); HEMATOCRIT 38.9 % (37-47); MEAN CORPUSCULAR HGB 28.5 PG (27.0-31.0); MEAN CORPUSCULAR HGB CONC 33.8 G/DL (33.0-37.0); MEAN CORPUSCULAR VOLUME 84.3 FL (81.0-99.0); MEAN PLATELET VOLUME 8.5 FL (7.4-10.4); PLATELET COUNT 302 /CUMM (130-400); RBC DISTRIBUTION WIDTH 13.7 % (11.5-14.5); RED BLOOD CELL CT 4.61 /CUMM (4.20-5.40); WHITE BLOOD CELL COUNT 13.1 /CUMM (4.8-10.8)
--- NOTE | 2018-05-13 03:58 | ED GI/GU/ABDOMINAL COMPLAINT ---
History of Present Illness General Chief Complaint: Nausea, Vomiting, Diarrhea Stated Complaint: NAUSA, VOMITING, DIZZINESS Source: patient, old records Exam Limitations: no limitations Vital Signs & Intake/Output Vital Signs & Intake/Output Vital Signs Date Time Temp Pulse Resp B/P B/P Pulse O2 O2 Flow FiO2 Mean Ox Delivery Rate 05/13 0344 98.0 66 20 101/59 98 Room Air 05/12 2322 97.8 68 16 126/84 97 Room Air ED Intake and Output 05/13 0000 05/12 1200 Intake Total Output Total Balance Patient 160 lb Weight Weight Reported by Patient Measurement Method Allergies Coded Allergies: No Known Allergies (05/12/18) Reconcile Medications Ethinyl Estradiol/Drospirenone (Teri 28 Tablet) 0.03 MG-3 MG TABLET 1 TAB PO DAILY BC (Reported) Famotidine (Pepcid) 20 MG TABLET 1 TAB PO BID gastritis Hyoscyamine Sulfate (Levsin-Sl) 0.125 MG TAB.SUBL 1-2 TAB SL Q4P PRN abdominal pain Ibuprofen 800 MG TABLET 1 TAB PO TID PAIN Methylprednisolone. (Medrol) 4 MG TAB.DS.PK 1 DP PO AD LUMBAR RADICULOPATHY 6 on day 1 then reduce by one tablet daily until gone Ondansetron (Zofran Odt) 4 MG TAB.RAPDIS 1 TAB SL TID PRN n/v Scopolamine 1 MG/3 DAY PATCH.TD.3 1 PATCH TOP Q72 PRN dizziness Tramadol HCl 50 MG TABLET 1-2 TAB PO BIDP PRN PAIN Triage Note: PT TO ED FOR WORSENING R SIDED ABD PAIN SEEN LAST PM IN ED FOR SAME "THEY TOLD ME TO COME BACK IF THE PAIN OR NAUSEA GOT WORSE" PT REPORTS 10/10 PAIN AND NAUSEA. AWAKE/ALERT WITH EASY WOB, MMM. Triage Nurses Notes Reviewed? yes LMP (ages 10-50): unknown ? n Is pt currently ? No Onset: Just prior to arrival Duration: day(s):, continues in ED, waxing and waning Timing: recent history Quality/Severity: aching, moderate Location: periumbilical Radiation: no radiation Activities at Onset: rest Prior Abdominal Problems: similar symptoms Past Sexual History: Unobtainable at this time Modifying Factors: Worsens With: movement. Associated Symptoms: abdominal pain, loss of appetite, nausea/vomiting HPI: 4 days prior to admission patient complains of chills periumbilical abdominal pain moderate to severe nonradiating associated with anorexia nausea. Prior to admission she complained of dizziness with worsening nausea especially with head movement and headache. She denies fever chest pain cough shortness of breath dysuria rash bleeding. Past History Travel History Traveled to [place] past 21 day No Medical History Any Pertinent Medical History? 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 No Review of Systems Review of Systems Constitutional: Reports: see HPI, chills, malaise. EENTM: Reports: no symptoms. Respiratory: Reports: no symptoms. Cardiovascular: Reports: no symptoms. GI: Reports: see HPI, abdominal pain, nausea. Genitourinary: Reports: no symptoms. Musculoskeletal: Reports: no symptoms. Skin: Reports: no symptoms. Neurological/Psychological: Reports: see HPI, headache. Hematologic/Endocrine: Reports: no symptoms. Immunologic/Allergic: Reports: no symptoms. All Other Systems: Reviewed and Negative Physical Exam Physical Exam General Appearance: well developed/nourished, alert, awake, anxious, mild distress, obese Head: atraumatic, normal appearance Eyes: Bilateral: normal appearance, PERRL, EOMI, other (nystagmus). Ears, Nose, Throat, Mouth: hearing grossly normal, moist mucous membrane Neck: normal inspection, supple, full range of motion, normal alignment Respiratory: normal breath sounds, chest non-tender, no respiratory distress, quiet respiration, lungs clear Cardiovascular: regular rate/rhythm, normal peripheral pulses, norml femoral pulses equa Peripheral Pulses: 4+ carotid (R), 4+ carotid (L) Gastrointestinal: normal bowel sounds, soft, non-tender, no organomegaly Back: normal inspection, normal range of motion Extremities: normal range of motion, no ligament instability Neurologic/Psych: no motor/sensory deficits, awake, alert, oriented x 3, normal gait, neckties painter II-XII nml as tested, nystagmus Skin: intact, normal color, warm/dry Core Measures ACS in differential dx? No Sepsis Present: No Sepsis Focused Exam Completed? No Progress Differential Diagnosis: biliary colic, gastritis, PUD/GERD, UTI/pyelo Plan of Care: Orders Procedure Date/time Status URINE 05/13 211 Complete URINALYSIS 05/13 211 Complete LIPASE 05/13 211 Complete COMPREHENSIVE METABOLIC PANEL 05/13 211 Complete CBC WITHOUT DIFFERENTIAL 05/13 211 Complete Laboratory Tests 05/13/18 0328: Urine Color YEL, Urine Clarity CLEAR, Urine pH 6.0, Ur Specific [place] >= 1.030 , Urine Protein NEG, Urine Ketones NEG, Urine Nitrite NEG, Urine Bilirubin NEG, Urine Urobilinogen 0.2, Ur Leukocyte Esterase NEG, Ur Microscopic EXAM NOT REQUIRED, Urine Hemoglobin NEG, Urine Glucose NEG, Urine Test NEGATIVE 05/13/18 0230: Anion Gap 12, Estimated GFR > 60, BUN/Creatinine Ratio 21.4, Glucose 107 H, Calcium 9.6, Total Bilirubin 0.2, AST 44 H, ALT 79 H, Alkaline Phosphatase 128 H, Total Protein 8.4 H, Albumin 4.7, Globulin 3.7, Albumin/Globulin Ratio 1.3, Lipase 91, CBC w Diff NO MAN DIFF REQ, RBC 4.61, MCV 84.3, MCH 28.5, MCHC 33.8, RDW 13.7, MPV 8.5, Gran % 84.0 H, Lymphocytes % 10.5 L, Monocytes % 4.8, Eosinophils % 0.3, Basophils % 0.4, Absolute Granulocytes 11.0 H, Absolute Lymphocytes 1.4, Absolute Monocytes 0.6, Absolute Eosinophils 0, Absolute Basophils 0.1 Initial ED EKG: none Departure Departure Time of Disposition: 554 Disposition: HOME OR SELF CARE Condition: Stable Clinical Impression Primary Impression: Acute viral syndrome Secondary Impressions: Dehydration Referrals: Patient Has No Primary Care Dr (PCP/Family) Departure Forms: Customer Survey General Discharge Information Prescriptions: Current Visit Scripts Ondansetron (Zofran Odt) 1 TAB SL TID PRN n/v #10 TAB Scopolamine 1 PATCH TOP Q72 PRN dizziness #4 PATCH Hyoscyamine Sulfate (Levsin-Sl) 1-2 TAB SL Q4P PRN abdominal pain #30 TAB Famotidine (Pepcid) 1 TAB PO BID #60 TAB
[2018-05-13] MEDS ORDERED: LEVSIN-SL0.125 MG SL (05:56)
[2018-05-13] MEDS ORDERED: SCOPOLAMINE1 EAC1 TOP (05:56)
[2018-05-13] MEDS ORDERED: ZOFRAN ODT4 M1 SL (05:56)
[2018-05-13 05:57] VITALS: BP 106/60
[2018-05-13] MEDS ORDERED: PEPCID20 M1 PO (05:57)
== END 2018-05-13 06:15 ==
LOC: ERH 23:11
PROVIDERS: Emergency Medicine
DX: B34.9 Viral infection, unspecified (principal); E86.0 Dehydration
CPT/HCPCS: 81003; 81025; 96374; 96375; J2405; J2765